=== PATIENT | male | born 1960 | race Caucasian/White ===

== ENCOUNTER 2023-04-09 10:17 | Emergency (ER) | payer OTHER ==
[~2023-04-09] VITALS: Ht 182.9 cm; Wt 99.8 kg
[2023-04-09 10:30] VITALS: O2SAT 97
[2023-04-09] MEDS ORDERED: CELEBREX200 MG PO (11:25)
[2023-04-09] MEDS ORDERED: METHOCARBAMOL750 MG PO (11:27)
== END 2023-04-09 11:47 | disposition home or self-care (01) ==
LOC: FSED 10:22
DX: M54.50 Low back pain, unspecified (principal); N40.0 Benign prostatic hyperplasia without lower urinary tract symptoms; E11.9 Type 2 diabetes mellitus without complications; F17.210 Nicotine dependence, cigarettes, uncomplicated
CPT/HCPCS: 99282